=== PATIENT | female | born 1990 | race Caucasian/White ===

== ENCOUNTER 2020-06-20 03:35 | Outpatient (CLI) | payer BC ==
[2020-06-20 03:56] VITALS: BP 111/79; PULSE 96; TEMP 96.8
[2020-06-20 04:25] VITALS: RESP 18
[2020-06-20 04:31] LABS: Appearance,Urine Cloudy (Clear); Bacteria,Urine Rare /hpf; Bilirubin,Urine Negative (Negative); Blood,Urine Negative (Negative); Color,Urine Light Yellow; Glucose,Urine (UA) Negative (Negative); Hyaline Casts,Urine 1 /lpf (0-2); Ketones,Urine Negative (Negative); Leukocyte Esterase,Urine Large (Negative); Mucus,Urine Rare /hpf; Nitrite,Urine Negative (Negative); PH, Urine 6.5 (5.0-8.0); Protein,Urine Negative (Negative); RBC,Urine 1 /hpf (0-5); Squamous Epithelial Cell,Urine 15 /hpf (0-4); Urobilinogen,Urine <2.0 mg/dL (<2.0); WBC,Urine 14 /hpf (0-5)
--- NOTE | 2020-07-12 07:49 | P.MSEPDOC ---
Presenting Problems - Arrival Data Date of Arrival on Unit: 06/20/20 Time of Arrival on Unit: 03:35 Mode of Transport: Ambulatory - Complaint OB-Reason for Admission/Chief Complaint: Pain Comment: left sided back pain Medical History - Information : 2 Para: 0 Term: 0 : 0 Abortions: Spontaneous or Elective: 0 Number of Living Children: 0 - Gestational Age Gestational Age by RONNI (wks/days): 36 Weeks and 5 Days Review of Systems - Review of Systems Constitutional: No problems Breast: No problems ENT: No problems Cardiovascular: No problems Respiratory: No problems Gastrointestinal: No problems Genitourinary: No problems Musculoskeletal: No problems Neurological: No problems Skin: No problems Vital Signs - Temperature Temperature: 96.8 F Temperature Source: Temporal Artery Scan - Pulse Right Brachial Pulse Rate: 96 Pulse Assessment Method: Pulse Oximetry - Respirations Respiratory Rate: 18 O2 Sat by Pulse Oximetry: 99 - Blood Pressure Right Arm Blood Pressure: 111/79 Blood Pressure Mean: 89 Blood Pressure Source: Automatic Cuff Medical Screen Scoring (Pre) - Cervical Exam Dilation: 0 cm = 0 Membranes: Intact - Uterine Contractions Frequency: > 5 minutes apart = 1 Duration: > 40 seconds = 2 Intensity: Contraction palpated strong = 1 - Maternal Vital Signs Maternal Temperature: N/A Maternal Blood Pressure: N/A Signs of Preeclampsia: N/A Maternal Respirations: N/A - Maternal Trauma Maternal Trauma: N/A - Assessment - Baby A Baseline FHR: 135 Heart Rate - NICHD Category: Category I (Normal) = 0 - Total Score - Baby A Total Score - Baby A: 4 - Total Score - Baby B Total Score - Baby B: 4 - Total Score - Baby C Total Score - Baby C: 4 - Level of Risk - Baby A Level of Risk - Baby A: Low (0-5) - Level of Risk - Baby B Level of Risk - Baby B: Low (0-5) - Level of Risk - Baby C Level of Risk - Baby C: Low (0-5) Physician Notification (Pre) - Physician Notified Physician Notified Date: 06/20/20 Physician Notified Time: 04:10 - Notification Comment Comment: called Dr Duncan at home. Reported on pts c/o left sided back pain, no abd. pain or tenderness, vitals WNL, SVE, reactive fhts, rare cntrx, UA collected, pt has. appt scheduled for this afternooon in office. Orders to run UA, d/c pt home before. resulted, and encouraged tylenol/fluids/rest. Office will contact her with any abnormal. results, or will address it at appt this afternoon Disposition - Disposition OB Disposition: Discharge to home Discharge Date: 06/20/20 Discharge Time: 04:24 I agree with the RN Medical Screening Exam: Yes Risk & Benefit of care provided described in d/c instruction: Yes Diagnosis: back pain in
== END 2020-06-20 04:20 | disposition home or self-care (01) ==
LOC: FBPOP 03:35
PROVIDERS: ATTEND Obstetrics & Gynecology
DX: O99.89 Other specified diseases and conditions complicating pregnancy, childbirth and the puerperium (principal); M54.5 Low back pain; Z3A.36 36 weeks gestation of pregnancy
CPT/HCPCS: 59025; 81001; 99213

== ENCOUNTER 2020-07-14 23:24 | Inpatient (IN) | payer BC ==
[2020-07-15] MEDS ORDERED: OXYTOCIN 30 UNITS/500 ML NS 30 UNIT in SALINE 1 500ML.BAG IV SCH
[2020-07-15] MEDS ORDERED: CARBOPROST TROMETHAMINE 250 MCG/ML 1 ML AMP IM PRN
[2020-07-15] MEDS ORDERED: TERBUTALINE 1 MG/ML VIAL SQ PRN
[2020-07-15] MEDS ORDERED: LIDOCAINE 0.5% (PF) 5 MG/ML (50 ML SDV) SQ PRN
[2020-07-15] MEDS ORDERED: OXYTOCIN 10 UNIT/ML 1 ML VIAL IM PRN
[2020-07-15] MEDS ORDERED: METHYLERGONOVINE 0.2 MG/ML 1 ML AMP IM PRN
[2020-07-15] MEDS: LACTATED RINGERS 1,000 ML IV SCH ×3 (00:31→06:57)
[2020-07-15 00:51] LABS: Basophils % (A) 0 %; Eosinophils # (A) 0.1 k/uL (0-0.7); Eosinophils % (A) 1 %; HCT 38.9 % (34.0-46.0); HGB 12.3 gm/dL (11.4-16.0); Lymphocytes # (A) 2.3 k/uL (1.0-4.8); Lymphocytes % (A) 18 %; MCH 27.2 pg (25.0-35.0); MCHC 31.7 g/dL (31.0-37.0); MCV 85.9 fL (80.0-100.0); Mean Platelet Volume 8.6; Monocytes # (A) 0.5 k/uL (0-1.0); Monocytes % (A) 4 %; Neutrophils # (A) 9.7 k/uL (1.3-7.7); Neutrophils % (A) 75 %; Platelet Count 282 k/uL (150-450); RBC 4.52 m/uL (3.80-5.40); RDW 14.3 % (11.5-15.5); WBC 12.9 k/uL (3.8-10.6)
[2020-07-15] MEDS ORDERED: BUTORPHANOL 1 MG/ML 1 ML VIAL IV PRN (02:03)
[2020-07-15] MEDS ORDERED: ROPIVACAINE 100 MG, fentaNYL (PF) 200 MCG in SODIUM CHLORIDE 0.9% 76 ML EPIDURAL ONE (05:05)
[2020-07-15] MEDS ORDERED: CITRIC ACID-SODIUM CITRATE 15 ML CUP PO ONE (09:53)
[2020-07-15] MEDS ORDERED: ONDANSETRON 4 MG/2 ML VIAL ONE (10:02)
[2020-07-15] MEDS ORDERED: KETOROLAC 15 MG/ML 1 ML VIAL ONE (10:02)
[2020-07-15] MEDS ORDERED: OXYTOCIN 10 UNIT/ML 1 ML VIAL ONE (10:02)
[2020-07-15] MEDS ORDERED: MORPHINE SULFATE (PF) 0.3 MG/0.3 ML SYR ONE (10:02)
--- NOTE | 2020-07-15 10:56 | P.HPOB ---
History of Present Illness H&P Date: 07/15/20 Chief Complaint: Rupture of membranes This is a 29 year old 2 para 0010 woman with an estimated due date of 07/13/2020 based on LMP consistent with second trimester ultrasound. She presents at 40 and one sevenths weeks gestation with complaints of rupture of membranes at approximately 8 PM on 07/14/2020. 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 Rupture of membranes was confirmed and her cervix is not dilated. She is admitted for induction of labor. Her she reports has been uncomplicated. On admission she denies vaginal bleeding, abdominal pain, fevers, chills or other concerns. Obstetrical history is significant for a 10 week spontaneous miscarriage in 2017. Laboratory data: Blood type A+, antibody screen negative, rubella immune, VDRL nonreactive, hep Fide surface antigen negative, HIV negative, gonorrhea and clinic cultures negative, diabetes screening within normal limits, group B strep negative. The patient received T Vaccine. Review of Systems All systems: negative Past Medical History Past Medical History: No Reported History History of Any Multi-Drug Resistant Organisms: None Reported Past Surgical History: No Surgical Hx Reported Past Anesthesia/Blood Transfusion Reactions: No Reported Reaction Past Psychological History: No Psychological Hx Reported Smoking Status: Never smoker Past Alcohol Use History: None Reported Past Drug Use History: None Reported - Past Family History Father Family Medical History: No Reported History Medications and Allergies Home Medications Medication Instructions Recorded Confirmed Type Pnv No.95/Ferrous Fum/Folic AC 1 tab PO DAILY 06/20/20 07/14/20 History [ Multivitamin Tablet] Allergies Allergy/AdvReac Type Severity Reaction Status Date / Time No Known Allergies Allergy Verified 07/14/20 23:33 Exam Vital Signs Temp Pulse Resp BP Pulse Ox 07/14/20 23:33 98.2 F 88 18 133/88 100 Intake and Output 07/14/20 07/15/20 07/15/20 22:59 06:59 14:59 Intake Total 2200 Output Total 400 Balance 1800 Intake: IV 2200 Output: Urine 400 Other: Weight 74.707 kg Upon my initial evaluation the patient received an epidural anesthetic and is resting comfortably. She is 4 cm dilated, 90% effaced and the vertex in the -2 station. heart tones were category 2. The patient had overall good variability and accelerations however had experienced a prolonged decelerations down to the 50-60 beats per minutes following placement of her epidural. This did resolve with position changes, discontinuation of the Pitocin and maternal oxygen. Results Result Diagrams: 07/15/20 00:29 Abnormal Lab Results - Last 24 Hours (Table) 07/15/20 Range/Units 00:29 WBC 12.9 H (3.8-10.6) k/uL Neutrophils # 9.7 H (1.3-7.7) k/uL Assessment and Plan (1) Spontaneous rupture of membranes Current Visit: Yes Status: Acute Code(s): CKQ7060 - SNOMED Code(s): 067054678 Plan: This is a 29-year-old 2 para 0 woman who presents at 40 and one sevenths weeks gestation with spontaneous rupture of membranes, not in labor. She is admitted and Pitocin augmentation is initiated. At the time of my initial evaluation the patient was 3-4 cm dilated, 90% effaced and vertex in the -2 station. Clear fluid is noted. She did have a several minutes of heart rate deceleration that has now resolved. Her tones are category 2 for that reason. Pitocin will be reinitiated when appropriate. Close monitoring.
[2020-07-15] MEDS ORDERED: ACETAMINOPHEN TAB 325 MG TAB PO PRN (11:04)
[2020-07-15] MEDS ORDERED: ZOLPIDEM 5 MG TAB PO PRN (11:04)
[2020-07-15] MEDS ORDERED: diphenhydrAMINE 25 MG CAP PO PRN (11:04)
[2020-07-15] MEDS ORDERED: diphenhydrAMINE 50 MG CAP PO PRN (11:04)
[2020-07-15] MEDS ORDERED: NALOXONE 0.4 MG/ML 1 ML VIAL IV PRN ×2 (11:04→13:32)
[2020-07-15] MEDS ORDERED: METOCLOPRAMIDE 5 MG/ML 2 ML VIAL IVP PRN (11:04)
[2020-07-15] MEDS ORDERED: diphenhydrAMINE 50 MG/ML 1 ML VIAL IVP PRN ×2 (11:04)
[2020-07-15] MEDS ORDERED: ONDANSETRON 4 MG/2 ML VIAL IVP PRN (11:04)
--- NOTE | 2020-07-15 11:04 | P.OP ---
Date of Procedure: 07/15/20 Preoperative Diagnosis: Category 3 heart tones in the second stage of labor Suspect malpresentation Postoperative Diagnosis: Phoebe 3 heart tones in the second stage of labor Occiput posterior Nuchal cord 1 Procedure(s) Performed: Primary low transverse section Anesthesia: epidural Surgeon: Malika Duncan Estimated Blood Loss (ml): 500 IV fluids (ml): 1,000 Urine output (ml): 150 Pathology: none sent Condition: stable Disposition: floor Indications for Procedure: This is a 29-year-old 2 para 0010 woman who presented at 40 and one sevenths weeks gestation with spontaneous rupture of membranes at approximately 8 PM on 07/14/2020. She presented to labor and delivery around midnight with rupture of membranes was confirmed. Her cervix was not dilated at that time and Pitocin induction of labor was initiated. She did progress to 3-4 cm dilated and received an epidural anesthetic. Following placement of the epidural although she was not hypotensive she did have a bradycardic event down to the 50-60 bpm for several minutes. This did resolve with on usual interventions. Eventually Pitocin was reinitiated and the patient reached complete cervical dilation by approximately 8:45 AM and commenced pushing. She did have another heart rate deceleration after several minutes of pushing down to the 70 bpm. This again resolved with cessation of pushing, discontinuation of Pitocin and ma ternal position changes. She had very irregular contractions without Pitocin and was able to resume pushing however examination revealed probable occiput posterior position. The patient was continued to push with contractions every 7-10 minutes. Pitocin was reinitiated however when contractions became more frequent we again had heart rate decelerations. She was remote from delivery at this time and the decision was made to proceed to low transverse section. Patient and her were counseled regarding the situation. status is reassuring when not pushing however nonreassuring with pushing. Risks of the were reviewed and consent is obtained. The anesthesiologist is notified and her epidural was bolused. Operative Findings: Female in the occiput posterior position with nuchal cord 1. Intact, three-vessel cord placenta. Normal-appearing uterus bilateral fallopian tubes and ovaries. Description of Procedure: After the patient and her were counseled in the room and her epidural was bolused she was taken to the operating room. She was positioned, prepped and draped in the dorsal supine position with a leftward tilt. Anesthetic was confirmed adequate a low transverse skin incision was made and carried down to the underlying fascia sharply. The fascia was incised in the midline and extended bilaterally with Zambrano scissors. The inferior and superior aspect of the fascial incisions were elevated and the underlying rectus muscles dissected off sharply and bluntly. The rectus muscles were bluntly in the midline and the peritoneum was entered sharply. The peritoneal incision was extended inferiorly and superiorly with good visualization the bladder. The heath dder blade was placed and the vesicouterine peritoneum was identified, tented up and entered sharply. The peritoneal incision was extended bilaterally with the Metzenbaum scissors. Bladder flap was created and the bladder blade was replaced. A low transverse uterine incision was made and was carried down to the underlying amniotic membranes bluntly. Membranes were ruptured and clear fluid was noted. The uterine incision was extended bilaterally bluntly. The 's head was sounded to be deeply engaged in the pelvis and in the occiput posterior position. The head was elevated without difficulty to the incision and delivered. A nuchal cord 1 was reduced. Nose and mouth were bulb suctioned. The rest of the Delivered onto the field. Nose and mouth were further bulb suctioned and the cord was clamped and cut. Apgars were 8 at 1 minute and 9 at 5 minutes and weight was 7 lbs. 4 oz., 3280 g. An intact, three-vessel cord placenta was then manually removed and the uterus was cleared of all clot and debris. The uterine was then removed from the abdome and the incision delineated with Diop clamps. The uterine incision was closed in a running locked fashion with 0 Vicryl suture followed by second imbricating layer of the same. The uterine incision was inspected and noted to be hemostatic. This uterus was returned to the abdomen and the gutters were cleared of all clot and debris. The uterine incision was reinspected and noted to be hemostatic. The fascial edges rectus muscles and peritoneal edges were inspected and Bovie electrocautery was utilized were necessary for hemostasis. The peritoneum was reapproximated in the midline. The fascia was then closed in a running fashion with 0 Vicryl suture. Subcu testicular tissue was irrigated. Some acute particular layer was closed with 4-0 chromic. The skin was then closed with 4-0 Vicryl. All counts reported to me as correct by the operating room staff patient received Duramorph in her epidural. She also received antibiotics preoperatively and Pitocin following delivery of the placenta. The patient and were transported back to her room in good condition.
[2020-07-15] MEDS ORDERED: LACTATED RINGERS 1,000 ML IV SCH (11:15)
[2020-07-15] MEDS: KETOROLAC 15 MG/ML 1 ML VIAL IVP PRN ×2 (12:58→19:24)
[2020-07-15 13:32] LABS: Basophils % (A) 0 %; Eosinophils % (A) 0 %; HGB 11.2 gm/dL (11.4-16.0); Lymphocytes # (A) 1.7 k/uL (1.0-4.8); Lymphocytes % (A) 8 %; MCH 27.4 pg (25.0-35.0); MCV 85.9 fL (80.0-100.0); Mean Platelet Volume 9.1; Monocytes # (A) 0.7 k/uL (0-1.0); Monocytes % (A) 3 %; Neutrophils # (A) 17.5 k/uL (1.3-7.7); Neutrophils % (A) 87 %; Platelet Count 237 k/uL (150-450); RBC 4.08 m/uL (3.80-5.40); RDW 14.2 % (11.5-15.5); WBC 20.1 k/uL (3.8-10.6)
[2020-07-15] MEDS ORDERED: MORPHINE SULFATE 2 MG/ML SYRINGE IVP PRN (13:32)
[2020-07-15] MEDS: SENNOSIDES-DOCUSATE SODIUM 1 EACH TAB PO SCH (19:29)
[2020-07-16] MEDS: KETOROLAC 15 MG/ML 1 ML VIAL IVP PRN (01:08)
[2020-07-16] MEDS: HYDROcodone/APAP 5-325MG 1 EACH TAB PO PRN ×3 (06:31→20:00)
[2020-07-16 06:59] LABS: Basophils % (A) 0 %; Eosinophils # (A) 0.1 k/uL (0-0.7); Eosinophils % (A) 1 %; HCT 32.4 % (34.0-46.0); HGB 10.3 gm/dL (11.4-16.0); Lymphocytes # (A) 2.1 k/uL (1.0-4.8); Lymphocytes % (A) 15 %; MCH 27.6 pg (25.0-35.0); MCHC 31.8 g/dL (31.0-37.0); MCV 86.6 fL (80.0-100.0); Mean Platelet Volume 8.6; Monocytes # (A) 0.6 k/uL (0-1.0); Monocytes % (A) 4 %; Neutrophils # (A) 10.8 k/uL (1.3-7.7); Neutrophils % (A) 78 %; Platelet Count 218 k/uL (150-450); RBC 3.74 m/uL (3.80-5.40); RDW 14.3 % (11.5-15.5); WBC 13.8 k/uL (3.8-10.6)
--- NOTE | 2020-07-16 07:01 | P.PN ---
Progress Note - Text Date:[07/16/2020] Time:[06 58] The patient is status post section Vital signs stable VAS:[0-10] Patient has no complaints of pain. The patient incurred some minimal itching yesterday, this itching is now subsiding. Pain meds to be managed by service.
--- NOTE | 2020-07-16 08:01 | P.PNOBGPC ---
Subjective - Subjective Principal diagnosis: Postop day 1 Interval history: Complaining of some soreness. Breast-feeding successfully Patient reports: Reports appetite normal, Reports voiding normally, Reports pain poorly controlled, Reports ambulating normally, Denies dizzy ambulation, Denies nauseated : doing well, nursing well Objective - Vital Signs Latest vital signs: Vital Signs Temp Pulse Resp BP Pulse Ox 07/16/20 06:00 15 07/16/20 04:00 97.9 F 77 18 92/54 98 07/16/20 01:47 18 98 07/16/20 00:00 98.1 F 78 18 92/57 96 07/15/20 22:00 18 98 07/15/20 20:00 99.4 F 83 18 108/66 98 07/15/20 18:32 99 07/15/20 18:00 16 07/15/20 15:56 89 16 07/15/20 15:55 98.3 F 89 16 107/62 99 07/15/20 15:30 16 07/15/20 14:32 16 99 07/15/20 13:32 16 99 07/15/20 12:50 98.0 F 74 16 111/58 100 07/15/20 12:20 98.1 F 80 16 108/58 99 07/15/20 11:50 101 H 16 120/68 99 07/15/20 11:35 110 H 16 114/77 99 07/15/20 11:20 93 16 101/66 98 07/15/20 11:05 86 16 116/62 98 07/15/20 10:50 98.1 F 91 16 119/58 100 Intake and Output 07/15/20 07/16/20 07/16/20 22:59 06:59 14:59 Intake Total 500 Output Total 1750 150 Balance -1250 -150 Intake: IV 500 Output: Urine 1750 150 Uretheral (Santoyo) 600 Other: Voiding Method Indwelling Catheter # Voids 1 - Exam Extremities: Present: normal Abdomen: Present: normal appearance, soft, tenderness Incision: Present: normal, dry, intact. Absent: erythematous Uterus: Present: normal, firm, tenderness - Labs Labs: Abnormal Lab Results - Last 24 Hours (Table) 07/15/20 07/16/20 Range/Units 12:55 06:24 WBC 20.1 H 13.8 H (3.8-10.6) k/uL RBC 3.74 L (3.80-5.40) m/uL Hgb 11.2 L 10.3 L (11.4-16.0) gm/dL Hct 32.4 L (34.0-46.0) % Neutrophils # 17.5 H 10.8 H (1.3-7.7) k/uL Assessment and Plan (1) Spontaneous rupture of membranes Current Visit: Yes Status: Acute Code(s): [id number] - SNOMED Code(s): 225184163 (2) Non-reassuring heart rate or rhythm affecting management of fetus Current Visit: Yes Status: Acute Code(s): DSR0711 - SNOMED Code(s): 872947967 (3) Nuchal cord Current Visit: Yes Status: Acute Code(s): O69.81X0 - LABOR AND DEL COMP BY CORD AROUND NECK, W/O COMPRSN, UNSP SNOMED Code(s): 063445296 (4) Occiput posterior presentation of fetus Current Visit: Yes Status: Acute Code(s): O64.0XX0 - OBSTRUCTED LABOR DUE TO INCMPL ROTATION OF HEAD, UNSP SNOMED Code(s): 19261894 (5) S/P section Current Visit: Yes Status: Acute Code(s): Z98.891 - HISTORY OF UTERINE SCAR FROM PREVIOUS SURGERY SNOMED Code(s): 588658818 Plan: Postop day 1 status post primary low transverse section. Reviewed scheduled use of pain medications for better pain control. Routine care. Probable discharge home tomorrow.
[2020-07-16] MEDS: SENNOSIDES-DOCUSATE SODIUM 1 EACH TAB PO SCH ×2 (08:05→20:00)
[2020-07-16] MEDS: IBUPROFEN 600 MG TAB PO PRN (16:27)
[2020-07-17] MEDS: IBUPROFEN 600 MG TAB PO PRN ×3 (00:13→13:47)
[2020-07-17] MEDS ORDERED: HYDROcodone/APAP 5-325MG 1 EACH TAB ONE (04:20)
--- NOTE | 2020-07-17 08:55 | P.DS ---
Providers Date of admission: 07/14/20 23:41 Expected date of discharge: 07/17/20 Attending physician: Jarvis Matta Primary care physician: Stated None - Discharge Diagnosis(es) (1) Non-reassuring heart rate or rhythm affecting management of fetus Current Visit: Yes Status: Acute (2) S/P section Current Visit: Yes Status: Acute Hospital Course: The patient is a 29-year-old 2 para 0010 admitted at 40-2/7 weeks by good dating parameters. She is admitted with documented spontaneous rupture of membranes with clear fluid. Her has been uncomplicated and group B strep status is negative. On labor and delivery, she had Pitocin started and ultimately underwent epidural analgesia. She progressed to complete and, during pushing, was found to have nonreassuring heart tones with pushing though they were reassuring when not pushing. Given the remote status from delivery, she was counseled and taken the operating room where she was delivered by primary low-transverse section of a viable 7 lbs. 4 oz. baby girl with Apgars of 8 at 1 minute and 9 at 5 minutes. Her postoperative and course have been unremarkable with vital signs remained stable and her temperature was afebrile throughout. She was deemed stable for discharge on and postoperative day #2 was discharged home to follow-up in the office in 2 weeks for an incision check and 6 weeks routinely. Discharge instructions included calling for any significantly increased bleeding or foul- smelling lochia, significantly increased fever abdominal pain, perineal complaints, breast complaints, incisional complaints, or anything else that concerned her. She was additionally instructed to have nothing in the vagina for at least 6 weeks time to include intercourse. She was last instructed to do no driving until off of all pain medications or 2 weeks' time, whichever came first. She understood her instructions and agrees follow up as noted above. Discharge medications included a prescription for [place] 5/325 mg, 1-2 by mouth every 6 hours when necessary pain, #20 dispensed with no refills. She was otherwise to use [id number] analgesic pain medications and to continue vitamins daily as she has opted to breast-feed. Maternal blood type is A+ and rubella status is immune. Discharge hemoglobin and hematocrit were 10.3 and 32.4 respectively. Procedures: #1. Pitocin augmentation #2. Epidural analgesia #3. Primary low-transverse section Patient Condition at Discharge: Stable Plan - Discharge Summary New Discharge Prescriptions: No Action Pnv No.95/Ferrous Fum/Folic AC [ Multivitamin Tablet] 1 tab PO DAILY Discharge Medication List Pnv No.95/Ferrous Fum/Folic AC [ Multivitamin Tablet] 1 tab PO DAILY 06/20/20 [History] Follow up Appointment(s)/Referral(s): Jarvis Matta MD [STAFF PHYSICIAN] - 2 Weeks Discharge Disposition: HOME SELF-CARE
[2020-07-17 09:51] VITALS: RESP 16
[2020-07-17] MEDS: HYDROcodone/APAP 5-325MG 1 EACH TAB PO PRN ×2 (11:13→16:33)
[2020-07-17 16:47] VITALS: BP 103/58; PULSE 91; TEMP 98.2
== END 2020-07-17 19:01 | disposition home or self-care (01) | DRG 788 ==
LOC: FBPOP 23:24 → 4FBP 23:41
PROVIDERS: ADMIT Obstetrics & Gynecology; ATTEND Obstetrics & Gynecology
PROC: 10D00Z1 Extraction of Products of Conception, Low, Open Approach (ICD-10-PCS; principal; 2020-07-15 10:33)
DX: O76 Abnormality in fetal heart rate and rhythm complicating labor and delivery (principal); O64.0XX0 Obstructed labor due to incomplete rotation of fetal head, not applicable or unspecified; O69.81X0 Labor and delivery complicated by cord around neck, without compression, not applicable or unspecified; O66.9 Obstructed labor, unspecified; Z37.0 Single live birth; Z3A.40 40 weeks gestation of pregnancy
CPT/HCPCS: 59025; 85025; 86850; 86900; 86901; 99213